=== PATIENT | male | born 1950 | race Native Hawaiian/Other Pacific Islander ===

== ENCOUNTER 2019-01-27 21:37 | Emergency (ER) | payer OTHER ==
[~2019-01-27] VITALS: Ht 185.4 cm; Wt 98.4 kg
[2019-01-27 22:15] LABS: PLATELET COUNT 195 K/uL (142-355)
[2019-01-27 22:27] LABS: POTASSIUM 3.8 mmol/L (3.6-5.2)
[2019-01-27 22:58] VITALS: BP 131/76; TEMP 97.6
[2019-01-27] MEDS ORDERED: LIPITOR40 MG PO (23:27)
[2019-01-27] MEDS ORDERED: BREO ELLIPTA 101 INH INH (23:27)
[2019-01-27] MEDS ORDERED: BUPROPN HCL300 MG PO (23:28)
[2019-01-27] MEDS ORDERED: CARV6.25 PO (23:29)
[2019-01-27] MEDS ORDERED: DULCOLAX SS100 MG PO (23:29)
[2019-01-27] MEDS ORDERED: BUSPIRONE10 MG PO (23:29)
[2019-01-27] MEDS ORDERED: DULOXETINE HCL30 MG PO (23:30)
[2019-01-27] MEDS ORDERED: GABA300C2 PO (23:30)
[2019-01-27] MEDS ORDERED: HUMALOG KW100 UNIT/M SC (23:32)
[2019-01-27] MEDS ORDERED: THIA100T8 PO (23:32)
[2019-01-27] MEDS ORDERED: OMEPRAZOLE20 M1 PO (23:34)
[2019-01-27] MEDS ORDERED: ADDAPRIN200 MG PO (23:34)
[2019-01-27] MEDS ORDERED: LEVE500T5 PO (23:34)
[2019-01-27] MEDS ORDERED: POTASSIUM PO (23:35)
[2019-01-27] MEDS ORDERED: TRADJENTA5 M1 PO (23:35)
[2019-01-27] MEDS ORDERED: TRAMADOL HCL E100 MG PO (23:36)
[2019-01-27] MEDS ORDERED: TRAZ100T PO (23:36)
[2019-01-27] MEDS ORDERED: DIOVAN HC1 PO (23:37)
[2019-01-27] MEDS ORDERED: ULORIC80 MG PO (23:37)
== END 2019-01-27 22:58 | disposition other institution (70) ==
LOC: ED 21:37
PROVIDERS: Emergency Medicine
DX: F28 Other psychotic disorder not due to a substance or known physiological condition (principal); Z04.6 Encounter for general psychiatric examination, requested by authority
CPT/HCPCS: 36415; 80053; 85027; 93005; 99285